=== PATIENT | male | born 2000 | race Caucasian/White ===

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

== ENCOUNTER 2020-10-22 20:36 | Emergency (ER) | payer BC ==
[~2020-10-22] VITALS: Ht 172.7 cm; Wt 72.6 kg
[2020-10-22] MEDS ORDERED: ARTIFICIAL TEAR15 M2 BOTHEYES (22:18)
[2020-10-22] MEDS ORDERED: ERYT1OIN BOTHEYES (22:18)
== END 2020-10-22 22:47 | disposition home or self-care (01) ==
LOC: ER 20:36
DX: H57.13 Ocular pain, bilateral (principal); X58.XXXA Exposure to other specified factors, initial encounter; Y92.89 Other specified places as the place of occurrence of the external cause; Y99.0 Civilian activity done for income or pay
CPT/HCPCS: A9270; J7030

== ENCOUNTER → 2022-03-07 | Outpatient (CLI) | payer OTHER ==
[~2022-03-07] MED LIST: ARTIFICIAL TEAR15 M2 BOTHEYES; ERYT1OIN BOTHEYES
[2022-03-07 14:26] LABS: Hematocrit 43.9 % (37.0-53.0); Hemoglobin 15.3 g/dL (13.5-17.5); Mean Corpuscular HGB 30.5 pg (26.0-34.0); Mean Corpuscular HGB Conc 34.9 g/dL (31.5-36.5); Mean Corpuscular Volume 88 fL (80-100); Mean Platelet Volume 12.7 fL (9.1-12.4); Platelet Count 153 K/mm3 (150-400); RDW Coefficient Variation 12.5 % (11.7-14.2); RDW Standard Deviation 40.3 fL (35.1-46.3); Red Blood Cell Count 5.01 M/mm3 (4.30-5.90); White Blood Cell Count 9.08 K/mm3 (4.00-11.30)
[2022-03-07 14:29] LABS: Albumin, Blood 4.7 g/dL (3.4-5.0); Albumin/Globulin Ratio 1.4 (0.8-1.8); Bilirubin, Total 0.5 mg/dL (0.1-1.0); Bun/Creatinine Ratio 26.4 (12.0-20.0); Calcium, Blood 9.4 mg/dL (8.5-10.1); Creatinine, Blood 0.76 mg/dL (0.60-1.20); Globulin, Blood 3.4 g/dL (2.2-4.0); Potassium, Blood 3.7 mmol/L (3.5-5.5); Total Protein, Blood 8.1 g/dL (6.4-8.2)
== END | disposition home or self-care (01) ==
LOC: LAB 14:00 → LAB SHORT 14:00
PROVIDERS: Nurse Practitioner Family
DX: M79.18 Myalgia, other site (principal); R20.2 Paresthesia of skin; S46.319A Strain of muscle, fascia and tendon of triceps, unspecified arm, initial encounter
CPT/HCPCS: 80053; 83735; 85027

== ENCOUNTER 2025-09-17 17:22 | Emergency (ER) | payer OTHER ==
[~2025-09-17] VITALS: Ht 177.8 cm; Wt 79.4 kg
[2025-09-17 17:56] VITALS: BP 146/86
[2025-09-17] MEDS ORDERED: Ketorolac Tromethamine 30mg Vial IM ONE (18:05)
[2025-09-17] MEDS ORDERED: RX Prepack 2 Tabs Ondansetron ODT 4MG UD ONE (18:05)
[2025-09-17] MEDS ORDERED: Ondansetron 4 MG SoluTab BC ONE (18:05)
[2025-09-17] MEDS ORDERED: ONDA4ODT MM (18:08)
== END 2025-09-17 18:15 | disposition home or self-care (01) ==
LOC: ER 17:22
DX: S00.03XA Contusion of scalp, initial encounter (principal); V00.131A Fall from skateboard, initial encounter; Y93.51 Activity, roller skating (inline) and skateboarding
CPT/HCPCS: 96372; 99283-25; A9270; J1885